=== PATIENT | female | born 1990 | race African-American/Black ===

== ENCOUNTER 2024-03-18 06:56 | Emergency (ER) | payer MEDICAID ==
[~2024-03-18] VITALS: Ht 167.6 cm; Wt 79.3 kg
[2024-03-18 07:17] VITALS: TEMP 98.6; O2SAT 99
[2024-03-18] MEDS: LIDOCAINE HCL/EPINEPHRINE 1%-EPI 1:100,000 20 ML VIAL INFIL ONE (07:30)
[2024-03-18] MEDS: BACITRACIN ZINC OINT UDPKT TOP ONE (07:30)
[2024-03-18] MEDS: HYDROCODONE/ACETAMINOPHEN 5/325MG TABLET PO ONE (08:25)
[2024-03-18 08:26] VITALS: BP 130/82; PULSE 100; RESP 18
[2024-03-18] MEDS: IBUPROFEN 600MG TABLET PO ONE (08:26)
== END 2024-03-18 09:06 | disposition home or self-care (01) ==
LOC: ER 06:56
DX: L02.31 Cutaneous abscess of buttock (principal)
CPT/HCPCS: 99283; J3490

== ENCOUNTER 2025-05-12 15:15 | Emergency (ER) | payer MEDICAID, OTHER ==
[~2025-05-12] VITALS: Ht 167.6 cm; Wt 72.0 kg
[2025-05-12 15:18] VITALS: BP 114/82; PULSE 113; RESP 18; TEMP 37.1; O2SAT 98
== END 2025-05-12 16:12 | disposition left against medical advice (07) ==
LOC: ER 15:15
DX: M25.572 Pain in left ankle and joints of left foot (principal); M25.562 Pain in left knee; Z53.21 Procedure and treatment not carried out due to patient leaving prior to being seen by health care provider